=== PATIENT | female | born 1965 | race Caucasian/White ===

== ENCOUNTER 2017-01-04 12:29 | Emergency (ER) | payer OTHER ==
[2017-01-04 12:29] VITALS: BMI 29.9
[2017-01-04] MEDS ORDERED: Sodium Chloride 0.9% 1,000 ML IV STA (13:29)
[2017-01-04] MEDS ORDERED: Sodium Chloride 0.9% 1,000 ML ONE (13:37)
[2017-01-04 14:02] LABS: MEAN CELL VOLUME 84.9 fL (81.0-99.0); RED CELL DISTRIBUTION WIDTH 13.7 % (11.5-14.5)
[2017-01-04 14:09] LABS: BASO % 0.7 % (0.0-2.0); EOS # 0.3 K/uL (0.0-0.7); EOS % 4.5 % (0.0-4.0); HEMATOCRIT 42.1 % (34.0-47.0); LYMPH # 2.2 K/uL (1.0-4.3); LYMPH % 37.1 % (20.0-40.0); MEAN CORPUSCULAR HEMOGLOBIN 28.2 pg (27.0-31.0); MEAN CORPUSCULAR HGB CONC 33.2 g/dL (33.0-37.0); MEAN PLATELET VOLUME 8.3 fL (7.2-11.7); MONO # 0.4 K/uL (0.0-0.8); MONO % 7.5 % (0.0-10.0)
[2017-01-04 14:10] LABS: CHLORIDE 104 mmol/L (98-107); SODIUM 141 mmol/L (132-148)
[2017-01-04 14:11] LABS: POTASSIUM 4.2 mmol/L (3.6-5.2)
[2017-01-04 14:13] LABS: ALB/GLOB RATIO 1.2 (1.0-2.1); ALKALINE PHOSPHATASE 77 U/L (38-126); ALT/SGPT 23 U/L (9-52); AST/SGOT 16 U/L (14-36); BILIRUBIN,TOTAL 0.5 mg/dL (0.2-1.3); BLOOD UREA NITROGEN 13 mg/dL (7-17); CARBON DIOXIDE 25 mmol/L (22-30); GFR AFRICAN-AMERICAN > 60; TOTAL PROTEIN 7.9 g/dL (6.3-8.3)
[2017-01-04 14:14] LABS: CALCIUM 9.5 mg/dl (8.6-10.4); GLUCOSE,RANDOM 86 mg/dL (65-105)
--- NOTE | 2017-01-04 14:17 | CT ---
PROCEDURE: CT HEAD WITHOUT CONTRAST. HISTORY: headache COMPARISON: None available. TECHNIQUE: Axial computed tomography images were obtained through the head/brain without intravenous contrast. Radiation dose: Total exam DLP = 924 mGy-cm. This CT exam was performed using one or more of the following dose reduction techniques: Automated exposure control, adjustment of the mA and/or kV according to patient size, and/or use of iterative reconstruction technique. FINDINGS: HEMORRHAGE: No intracranial hemorrhage. BRAIN: No mass effect or edema. No atrophy or chronic microvascular ischemic changes. VENTRICLES: Unremarkable. No hydrocephalus. CALVARIUM: Unremarkable. PARANASAL SINUSES: Minimal mucosal thickening of the right maxillary sinus. MASTOID AIR CELLS: Unremarkable as visualized. No inflammatory changes. OTHER FINDINGS: None. IMPRESSION: No acute intracranial abnormality. Minimal mucosal thickening in the right maxillary sinus. If focal neurologic deficit persists consider MRI.
[2017-01-04 14:25] LABS: RBC URINE 2 /hpf (0-3); URINE BACTERIA RARE (<OCC); URINE BILIRUBIN NEGATIVE (NEGATIVE); URINE BLOOD NEGATIVE (NEGATIVE); URINE COLOR Yellow (YELLOW); URINE GLUCOSE (UA) NORMAL (Normal); URINE KETONE NEGATIVE (NEGATIVE); URINE LEUKOCYTE ESTERASE NEG Leu/uL (Negative); URINE PROTEIN NEGATIVE (NEGATIVE); URINE UROBILINOGEN NORMAL mg/dL (0.2-1.0); WBC URINE 1 /hpf (0-5)
--- NOTE | 2017-01-04 14:30 | C.PDOC ---
History Of Present Illness 51-year-old female, PMHx includes Diabetes and Hypertension, presents to the emergency department with complaints of one-week duration of a B/L parietal headache, that is constant in nature. Associated symptoms include intermittent light-headedness, nausea and photophobia. Patient also reports her blood sugar was in 160s, for which she took someone else's Metformin, and now has urinary frequency. denies fevers, stiff neck, visual changes, vomiting, vertigo-like symptoms, or any other associated symptoms. No other complaints at this time. Time Seen by Provider: 01/04/17 13:17 Chief Complaint (Nursing): Headache History Per: Patient History/Exam Limitations: no limitations Onset/Duration Of Symptoms: Days Current Symptoms Are (Timing): Still Present Severity: Moderate Associated Symptoms: Photophobia, Nausea Past Medical History Reviewed: Historical Data, Nursing Documentation, Vital Signs Vital Signs: Last Vital Signs Temp 98.1 F 01/04/17 14:41 Pulse 104 H 01/04/17 14:41 Resp 18 01/04/17 14:41 BP 127/85 01/04/17 14:41 Pulse Ox 100 01/04/17 14:41 - Medical History PMH: Diabetes, HTN Family History: States: No Known Family Hx - Social History Hx Tobacco Use: No Hx Alcohol Use: No Hx Substance Use: No - Immunization History Hx Tetanus Toxoid Vaccination: No Hx Influenza Vaccination: No Hx Pneumococcal Vaccination: No Review Of Systems Constitutional: Negative for: Fever Eyes: Positive for: Other (Photophobia) Cardiovascular: Positive for: Light Headedness (Intermittent). Negative for: Chest Pain Respiratory: Negative for: Shortness of Breath Gastrointestinal: Positive for: Nausea. Negative for: Vomiting Genitourinary: Positive for: Frequency Musculoskeletal: Negative for: Neck Pain (No stiffness), Back Pain Neurological: Positive for: Headache. Negative for: Weakness, Numbness, Change in Speech, Dizziness Physical Exam - Physical Exam Additional Physical Exam Comments: Constitutional: No acute distress. Head: Normocephalic. Atraumatic. Eyes: PERRL. EOMI ENT: Moist mucous membranes. Neck: Supple. Cardiovascular: Regular rate. Radial pulses 2+ bilaterally. Chest: No tenderness. Respiratory: Clear to auscultation bilaterally. GI: Soft. Nontender. Nondistended. Back: No CVA tenderness. No midline tenderness. Musculoskeletal: No tenderness or swelling of extremities. Skin: No rash. Neurologic: Alert, no focal deficit. ED Course And Treatment - Laboratory Results Result Diagrams: 01/04/17 13:54 01/04/17 13:54 O2 Sat by Pulse Oximetry: 99 - CT Scan/US CT HEAD Other Rad Studies (CT/US): Read By Radiologist, Radiology Report Reviewed CT/US Interpretation: Accession No. : [id number]. Patient Name / ID : KATHERINE YEAGER / [id number]. Exam Date : 01/04/2017 14:05:24 ( Approved ). Study Comment : Sex / Age : F / 51Y. Creator : Gulshan Oconnor MD. Dictator : Gulshan Oconnor MD. 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 Approver2 : Report Date : 01/04/2017 14:15:32. My Comment : . PROCEDURE: CT HEAD WITHOUT CONTRAST. HISTORY: headache. COMPARISON: None available. TECHNIQUE: Axial computed tomography images were obtained through the head/ brain without intravenous contrast. Radiation dose: Total exam DLP = 924 mGy- cm. This CT exam was performed using one or more of the following dose reduction techniques: Automated exposure control, adjustment of the mA and/or kV according to patient size, and/or use of iterative reconstruction technique. FINDINGS: HEMORRHAGE: No intracranial hemorrhage. BRAIN: No mass effect or edema. No atrophy or chronic microvascular ischemic changes. VENTRICLES: Unremarkable. No hydrocephalus. CALVARIUM: Unremarkable. PARANASAL SINUSES: Minimal mucosal thickening of the right maxillary sinus. MASTOID AIR CELLS: Unremarkable as visualized. No inflammatory changes. OTHER FINDINGS: None. IMPRESSION: No acute intracranial abnormality. Minimal mucosal thickening in the right maxillary sinus. If focal neurologic deficit persists consider MRI. Medical Decision Making Medical Decision Making: Impression 51y/o F comes in w/ B/L headache x1 week. Plan: * CT Head * EKG * CMP * CBC * Reglan, IVFs, Toradol, Tylenol * Urinalysis/HCG * Reassess and Disposition EKG Rate 80bpm Rhythm NSR Interpret No acute ST/T wave changes. Labs unremarkable. Patient feels better and wishes to go home, requesting HTN medication prescription. Disposition - Disposition Referrals: [facility] at [facility] [place] [Outside] Disposition: HOME/ ROUTINE Disposition Time: 14:38 Condition: STABLE Prescriptions: Lisinopril/Hydrochlorothiazide [Lisinopril-Hctz 10-12.5 mg Tab] 1 each PO DAILY #7 tablet Instructions: Acute Headache (ED) - Clinical Impression Clinical Impression: Headache - Scribe Statement The provider has reviewed the documentation as recorded by the Scribnapoleon Sullivan All medical record entries made by the Scribe were at my direction and personally dictated by me. I have reviewed the chart and agree that the record accurately reflects my personal performance of the history, physical exam, medical decision making, and the department course for this patient. I have also personally directed, reviewed, and agree with the discharge instructions and disposition.
[2017-01-04 14:43] VITALS: BP 127/85; PULSE 104; RESP 18; TEMP 98.1
[2017-01-04 15:29] VITALS: O2SAT 99
== END 2017-01-04 15:34 | disposition home or self-care (01) ==
LOC: C.ER 12:29
DX: R51 Headache (principal); I10 Essential (primary) hypertension
CPT/HCPCS: 70450; 80053; 81001; 84703; 85025; 96374; 96375; 99285; J1885; J2765; J7040

== ENCOUNTER 2017-09-25 07:51 | Emergency (ER) | payer OTHER ==
[2017-09-25 07:51] VITALS: BMI 29.9
[2017-09-25 07:55] VITALS: TEMP 99.4
[2017-09-25 09:00] LABS: HCG,QUALITATIVE URINE NEGATIVE (NEGATIVE)
[2017-09-25 09:01] LABS: SQUAMOUS EPITHIAL 7 /hpf (0-5); URINE BILIRUBIN NEGATIVE (NEGATIVE); URINE BLOOD NEGATIVE (NEGATIVE); URINE CLARITY Hazy (Clear); URINE COLOR Red (YELLOW); URINE GLUCOSE (UA) NORMAL (Normal); URINE LEUKOCYTE ESTERASE NEG Leu/uL (Negative); URINE NITRATE NEGATIVE (NEGATIVE); URINE PROTEIN NEGATIVE (NEGATIVE); URINE UROBILINOGEN NORMAL mg/dL (0.2-1.0)
--- NOTE | 2017-09-25 09:32 | RAD ---
PROCEDURE: Radiographs of the Lumbar Spine. HISTORY: COMPARISON: No prior. FINDINGS: BONES: Normal alignment. No listhesis. No fracture. Lumbosacral junctional transitional elements suggested Diffuse endplate ridging at all lumbar levels. DISC SPACES: Minimal L5-S1 disc space narrowing OTHER FINDINGS: None. IMPRESSION: Developmental and senescent changes as above. No fracture or lytic lesion
--- NOTE | 2017-09-25 10:39 | C.PDOC ---
History Of Present Illness 52-year-old female, presents to the emergency department with complaints of three week duration of lower back pain radiating down the left leg. Pain is worsened with movement. Denies injury or fall. No numbness/weakness, bladder/ bowel incontinence, or any other associated symptoms. No other complaints at this time. Time Seen by Provider: 09/25/17 08:13 Chief Complaint (Nursing): Back Pain History Per: Patient History/Exam Limitations: no limitations Onset/Duration Of Symptoms: Days Quality Of Discomfort: Aching, "Pain" Associated Symptoms: denies: Incontinence, New Weakness, New Numbness Exacerbating Factor(s): Movement Recent travel outside of the [place]: No Past Medical History Reviewed: Historical Data, Nursing Documentation, Vital Signs Vital Signs: Last Vital Signs Temp 99.4 F 09/25/17 07:53 Pulse 73 09/25/17 11:02 Resp 20 09/25/17 11:02 BP 121/92 H 09/25/17 11:02 Pulse Ox 96 09/25/17 11:02 - Medical History PMH: Diabetes, HTN Family History: States: No Known Family Hx - Social History Hx Tobacco Use: No Hx Alcohol Use: No Hx Substance Use: No - Immunization History Hx Tetanus Toxoid Vaccination: No Hx Influenza Vaccination: No Hx Pneumococcal Vaccination: No Review Of Systems Except As Marked, All Systems Reviewed And Found Negative. Constitutional: Negative for: Fever, Chills Cardiovascular: Negative for: Chest Pain Respiratory: Negative for: Shortness of Breath Gastrointestinal: Negative for: Vomiting Musculoskeletal: Positive for: Back Pain, Leg Pain Skin: Negative for: Rash Neurological: Negative for: Weakness, Numbness Physical Exam - Physical Exam Appears: Non-toxic, No Acute Distress Skin: Normal Color, Warm, Dry, No Rash Head: Atraumatic, Normacephalic Eye(s): bilateral: Normal Inspection, PERRL, EOMI Nose: Normal Oral Mucosa: Moist Lips: Normal Appearing Neck: Normal ROM, No Midline Cervical Tenderness, No Paracervical Tenderness, Supple Chest: Symmetrical, No Tenderness Cardiovascular: Rhythm Regular, No Friction Rub, No Murmur Respiratory: Normal Breath Sounds, No Accessory Muscle Use, No Wheezing Gastrointestinal/Abdominal: Bowel Sounds (active), Soft, No Tenderness Back: No CVA Tenderness, No Vertebral Tenderness, Paraspinal Tenderness (Lumbar , left) Extremity: Normal ROM, No Tenderness, No Calf Tenderness, No Deformity, No Swelling Neurological/Psych: Oriented x3, Normal Speech, Normal Motor Gait: Steady ED Course And Treatment O2 Sat by Pulse Oximetry: 97 (RA) Pulse Ox Interpretation: Normal Progress Note: XR LS Spine and UA/Upreg ordered and reviewed. Patient treated with Flexeril, and Toradol. Reassessment Condition: Improved (On re-exam, the patient reports improvement of symptoms. Lungs are CTA, heart is RRR, abdomen is soft, non-tender and tolerating PO well. Ambulatory in the ED with steady gait) Disposition - Disposition Referrals: [facility] at [facility] [Outside] Disposition: HOME/ ROUTINE Disposition Time: 10:44 Condition: STABLE Additional Instructions: Follow up with the medical doctor within 1-2 days. Return if worsened. Prescriptions: Cyclobenzaprine [Cyclobenzaprine HCl] 10 mg PO BID #14 tab Naproxen [Naprosyn] 500 mg PO BID #20 tab Instructions: Osteoarthritis, Low Back Pain (DC) Forms: [employer] (Mozambican) - Clinical Impression Clinical Impression: Low back pain - Scribe Statement The provider has reviewed the documentation as recorded by the Scribe (Frida Sullivan) All medical record entries made by the Scribe were at my direction and personally dictated by me. I have reviewed the chart and agree that the record accurately reflects my personal performance of the history, physical exam, medical decision making, and the department course for this patient. I have also personally directed, reviewed, and agree with the discharge instructions and disposition.
[2017-09-25 11:04] VITALS: BP 121/92; PULSE 73; RESP 20
[2017-09-25 19:16] VITALS: O2SAT 97
== END 2017-09-25 11:04 | disposition home or self-care (01) ==
LOC: C.ER 07:51
DX: M54.5 Low back pain (principal)
CPT/HCPCS: 72100; 81001; 84703; 87086; 96372; 99285; J1885

== ENCOUNTER 2017-09-30 10:03 | Emergency (ER) | payer OTHER ==
[2017-09-30 10:03] VITALS: BMI 29.9
[2017-09-30 10:07] VITALS: RESP 18; TEMP 98; O2SAT 99
--- NOTE | 2017-09-30 10:47 | C.PDOC ---
History Of Present Illness 52-year-old female, PMHx includes Hypertension and Diabetes, comes to the emergency department from clinic with complaints of elevated blood pressure. Patient notes she had an appointment with the clinic because her blood pressure has been poorly controlled over the past few days. Patients pressure noted to be high and she was sent to ED for further evaluation. She denies any symptoms at this time. Denies dizziness, chest pain, headache, nausea/vomiting, fevers, chills, shortness of breath or any other associated symptoms. No other complaints at this time. Time Seen by Provider: 09/30/17 10:21 Chief Complaint (Nursing): High Blood Pressure History Per: Patient History/Exam Limitations: no limitations Onset/Duration Of Symptoms: Days Past Medical History Reviewed: Historical Data, Nursing Documentation, Vital Signs Vital Signs: Last Vital Signs Temp 98 F 09/30/17 10:06 Pulse 65 09/30/17 10:06 Resp 18 09/30/17 10:06 BP 153/91 H 09/30/17 10:06 Pulse Ox 99 09/30/17 10:48 - Medical History PMH: Diabetes, HTN Family History: States: No Known Family Hx - Social History Hx Tobacco Use: No Hx Alcohol Use: No Hx Substance Use: No - Immunization History Hx Tetanus Toxoid Vaccination: No Hx Influenza Vaccination: No Hx Pneumococcal Vaccination: No Review Of Systems Constitutional: Negative for: Fever Cardiovascular: Negative for: Chest Pain, Palpitations Respiratory: Negative for: Shortness of Breath Gastrointestinal: Negative for: Nausea, Vomiting Neurological: Negative for: Weakness, Numbness, Headache, Dizziness Physical Exam - Physical Exam Appears: Non-toxic, No Acute Distress Skin: Normal Color, Warm, Dry, No Rash Head: Normacephalic Eye(s): bilateral: Normal Inspection, PERRL, EOMI Nose: Normal Oral Mucosa: Moist Neck: Normal ROM Chest: Symmetrical Cardiovascular: Rhythm Regular, No Murmur Respiratory: Normal Breath Sounds, No Accessory Muscle Use Extremity: Normal ROM, No Deformity, No Swelling Neurological/Psych: Oriented x3, Normal Speech ED Course And Treatment O2 Sat by Pulse Oximetry: 99 (RA) Pulse Ox Interpretation: Normal Disposition Counseled Patient/Family Regarding: Diagnosis, Need For Followup, Rx Given - Disposition Referrals: [facility] at [facility] [Outside] Disposition: HOME/ ROUTINE Disposition Time: 10:50 Condition: STABLE Additional Instructions: FOLLOW UP IN THE MEDICAL CLINIC AFTER DISCHARGE RETURN TO EMERGENCY ROOM IF YOU HAVE ANY CONCERNING SYMPTOMS SEGUIMIENTO EN LA CLNICA MDICA DESPUS DE LA DESCARGA REGRESE AL NAWAF DE EMERGENCIA SI TIENE ALGN SNTOMA CONCRETO Prescriptions: Lisinopril/Hydrochlorothiazide [Lisinopril-Hctz 20-12.5 mg Tab] 1 each PO DAILY #30 tablet Forms: [employer] (German) Print Language: LITHUANIAN - Clinical Impression Clinical Impression: Hypertension - Scribe Statement The provider has reviewed the documentation as recorded by the Scribe (Frida Sullivan) All medical record entries made by the Scribe were at my direction and personally dictated by me. I have reviewed the chart and agree that the record accurately reflects my personal performance of the history, physical exam, medical decision making, and the department course for this patient. I have also personally directed, reviewed, and agree with the discharge instructions and disposition.
[2017-09-30 11:26] VITALS: BP 150/80; PULSE 68
== END 2017-09-30 10:50 | disposition home or self-care (01) ==
LOC: C.ER 10:03
DX: I10 Essential (primary) hypertension (principal)

== ENCOUNTER 2018-07-30 08:29 | Emergency (ER) | payer OTHER ==
[2018-07-30 08:29] VITALS: BMI 35.9
--- NOTE | 2018-07-30 08:55 | C.PDOC ---
History Of Present Illness 53 year old female presents to the ED complaining of pain to her left breast for 3 days. States the pain is non-radiating. She denies any chest pain, SOB, redness or discharge from the breast. 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 Time Seen by Provider: 07/30/18 08:44 Chief Complaint (Nursing): Breast Problem History Per: Patient History/Exam Limitations: no limitations Onset/Duration Of Symptoms: Days (x3) Current Symptoms Are (Timing): Still Present Past Medical History Reviewed: Historical Data, Nursing Documentation, Vital Signs Vital Signs: Last Vital Signs Temp 97.8 F 07/30/18 08:31 Pulse 74 07/30/18 08:31 Resp 18 07/30/18 08:31 BP 155/92 H 07/30/18 08:31 Pulse Ox 98 07/30/18 08:31 - Medical History PMH: Diabetes, HTN Family History: States: Unknown Family Hx - Social History Hx Tobacco Use: No Hx Alcohol Use: No Hx Substance Use: No - Immunization History Hx Tetanus Toxoid Vaccination: No Hx Influenza Vaccination: No Hx Pneumococcal Vaccination: No Review Of Systems Constitutional: Positive for: Other (Left breast pain). Negative for: Fever, Chills Cardiovascular: Negative for: Chest Pain Respiratory: Negative for: Shortness of Breath Gastrointestinal: Negative for: Abdominal Pain Skin: Negative for: Rash Physical Exam - Physical Exam Appears: Well, Non-toxic, No Acute Distress Skin: Warm, Dry, No Rash Head: Atraumatic, Normacephalic Eye(s): bilateral: Normal Inspection Oral Mucosa: Moist Neck: Normal ROM Chest: Tenderness (mild non-focal tenderness to left breast), Other (breasts appear symmetric; no skin dimpling, erythema, palpable mass, or nipple discharge) Cardiovascular: Rhythm Regular Respiratory: Normal Breath Sounds, No Rales, No Rhonchi, No Wheezing Gastrointestinal/Abdominal: Soft, No Tenderness, No Guarding Back: Normal Inspection, No Vertebral Tenderness, No Paraspinal Tenderness Extremity: Bilateral: Atraumatic, Normal Color And Temperature, Normal ROM Neurological/Psych: Oriented x3, Normal Speech Gait: Steady ED Course And Treatment ECG: Interpreted By Me, Viewed By Me ECG Rhythm: Sinus Rhythm Interpretation Of ECG: slight left axis deviation, no ST/T wave changes Rate From EC O2 Sat by Pulse Oximetry: 98 (RA) Pulse Ox Interpretation: Normal Medical Decision Making Medical Decision Making: Impression: Left breast pain Initial Plan: --EKG --Chest x-ray --Motrin 600 mg PO Progress: CXR shows no acute disease. Patient remains afebrile, AAOx3, in no acute disease. Advised to follow up with bench press operator for outpatient management. Disposition Counseled Patient/Family Regarding: Diagnosis, Need For Followup, Rx Given - Disposition Referrals: [facility] [Outside] [facility] [Outside] Disposition: HOME/ ROUTINE Disposition Time: 09:38 Condition: STABLE Additional Instructions: Usted fue atendido hoy en la marylin de emergencias por dolor de senos. Rao ECG y radiografa de trax jess normales. Debe jhoan analgsicos segn sea necesario y puede aplicar carmen toalla tibia en el niya. 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 - Scribe Statement The provider has reviewed the documentation as recorded by the Scribnapoleon Lemon All medical record entries made by the Scribe were at my direction and per sonally dictated by me. I have reviewed the chart and agree that the record accurately reflects my personal performance of the history, physical exam, medical decision making, and the department course for this patient. I have also personally directed, reviewed, and agree with the discharge instructions and disposition.
--- NOTE | 2018-07-30 10:04 | RAD ---
Date of service: 07/30/2018 HISTORY: pain to breast COMPARISON: 07/09/2016 TECHNIQUE: Chest PA and lateral FINDINGS: LUNGS: No active pulmonary disease. PLEURA: No significant pleural effusion identified. No pneumothorax apparent. CARDIOVASCULAR: No aortic atherosclerotic calcification present. Normal cardiac size. No pulmonary vascular congestion. OSSEOUS STRUCTURES: Thoracic spondylosis. VISUALIZED UPPER ABDOMEN: Normal. OTHER FINDINGS: None. IMPRESSION: No active disease. No interval pathology noted.
[2018-07-30 12:42] VITALS: BP 149/87; PULSE 67; RESP 18; TEMP 98.3; O2SAT 98
--- NOTE | 2018-07-30 14:46 | CARD ---
APPROVED REPORT Date of service: 07/30/2018 EKG Measurement Heart [id number] <Conclusion> Normal sinus rhythm Minimal voltage criteria for LVH, may be normal variant Borderline ECG
== END 2018-07-30 09:48 | disposition home or self-care (01) ==
LOC: C.ER 08:29
DX: N64.4 Mastodynia (principal); I10 Essential (primary) hypertension; E11.9 Type 2 diabetes mellitus without complications

== ENCOUNTER 2018-08-05 10:15 | Outpatient (CLI) | payer SELFPAY | END 2018-08-05 10:16 | disposition home or self-care (01) | LOC: C.MAMMO 10:15 ==

== ENCOUNTER 2018-08-28 08:30 | Outpatient (CLI) | payer OTHER | END 2018-08-28 08:31 | disposition home or self-care (01) | LOC: C.CARD 08:30 ==

== ENCOUNTER 2018-09-22 17:59 | Outpatient (CLI) | payer SELFPAY | END 2018-09-22 18:00 | disposition home or self-care (01) | LOC: C.SLEEP 18:00 ==